=== PATIENT | female | born 1975 | race Hispanic/Latino ===

== ENCOUNTER 2016-12-31 08:15 | Emergency (ER) | payer OTHER ==
[~2016-12-31] VITALS: Ht 162.6 cm; Wt 73.6 kg
[~2016-12-31 08:15] MED LIST: ANTIVERT25 MG PO; AUGMENTIN875 MG PO; CONSTULOSE10 GM/15 M PO; DURAGESIC25 MCG TD; ERYTHROMYC1 APPLICAT BOTH EYES; FAMOTIDINE20 MG PO; FENTANYL1 EAC5 TD; FLONASE16 G1 NS; GABAPENTIN PO; HYDROCODON-ACE1 EAC7 PO; LISINOPRIL10 MG PO; MACROBID100 MG PO; MORPHINE SULFAT15 MG PO; MORPHINE SULFAT30 M1 PO; MULTIPLE VITAM1 EAC1 PO; NAUSEA MEDICATION; NEURONTIN100 MG PO; NEXIUM20 MG PO; ONDANSETRON HCL8 MG PO; PERCOCET 5/31 TABLET PO; PERCOCET 7.51 TABLET PO; PROVENTIL,2.5 MG/3 M IH; REGLAN10 MG PO; ULTRAM50 MG PO; VALTREX50 MG/ML PO; VENTOLIN17 GM IH; ZANTAC150 MG PO; ZOFRAN ODT4 MG PO; ZOFRAN4 MG PO; ZOFRAN8 MG PO; [UNRECOGNIZED DRUG - OTHER]
[2016-12-31 09:41] VITALS: BP 149/108
== END 2016-12-31 10:27 | disposition home or self-care (01) ==
LOC: EME 08:15
PROC: 09QKXZZ Repair Nasal Mucosa and Soft Tissue, External Approach (ICD-10-PCS; principal; 2016-12-31)
DX: S01.21XA Laceration without foreign body of nose, initial encounter (principal); W06.XXXA Fall from bed, initial encounter; Z85.07 Personal history of malignant neoplasm of pancreas; Z72.0 Tobacco use
CPT/HCPCS: 99281; 99282

== ENCOUNTER 2017-10-08 16:49 | Emergency (ER) | payer OTHER ==
[~2017-10-08] VITALS: Ht 162.6 cm; Wt 76.6 kg
[2017-10-08] MEDS ORDERED: PREDNISONE50 MG PO (19:07)
[2017-10-08] MEDS ORDERED: PEPCID20 MG PO (19:07)
[2017-10-08] MEDS ORDERED: EPIPEN ADU0.3 MG/0.3 IM (19:07)
[2017-10-08] MEDS ORDERED: BENADRYL50 MG PO (19:07)
[2017-10-08 19:23] VITALS: BP 134/78
== END 2017-10-08 19:23 | disposition home or self-care (01) ==
LOC: EME 16:49
DX: T63.461A Toxic effect of venom of wasps, accidental (unintentional), initial encounter (principal); I10 Essential (primary) hypertension; Z90.81 Acquired absence of spleen; Z85.07 Personal history of malignant neoplasm of pancreas; Z86.73 Personal history of transient ischemic attack (TIA), and cerebral infarction without residual deficits; Z72.0 Tobacco use
CPT/HCPCS: 99281; 99284; J7512